=== PATIENT | male | born 1985 | race Caucasian/White ===

== ENCOUNTER 2018-04-13 15:54 | Inpatient (IN) | payer MEDICAID ==
[~2018-04-13] VITALS: Ht 177.8 cm; Wt 64.0 kg
[2018-04-13 16:21] LABS: BASOPHILS % (AUTO) 0.3 % (0.0-2.0); EOSINOPHILS % (AUTO) 0 % (1.0-6.0); HEMATOCRIT 41.1 % (41-53); HEMOGLOBIN 14.2 g/dL (13.5-17.5); LYMPHOCYTES # (AUTO) 1.3 K/uL (1.0-4.8); LYMPHOCYTES % (AUTO) 14.7 % (22.0-44.0); MEAN CORPUSCULAR HEMOGLOBIN 29.4 pg (26.0-34.0); MEAN CORPUSCULAR HGB CONC 34.6 G/dL (31.0-37.0); MEAN CORPUSCULAR VOLUME 85 fL (80-100); MONOCYTES # (AUTO) 0.6 K/uL (0.1-1.0); MONOCYTES % (AUTO) 7.4 % (2.0-9.0); NEUTROPHILS # (AUTO) 6.7 K/uL (1.8-7.7); NEUTROPHILS % (AUTO) 77.6 % (40.0-70.0); PLATELET COUNT (AUTO) 175 K/uL (150-450); RED BLOOD CELL COUNT(AUTO) 4.83 MIL/uL (4.50-5.90); RED CELL DISTRIBUTION WIDTH 14.3 % (11.5-14.5)
[2018-04-13 16:33] LABS: ANION GAP 13 mmol/L (8-16); CALCIUM, TOTAL 8.9 mg/dL (8.8-10.5); CARBON DIOXIDE 23 mmol/L (22-29); CHLORIDE 103 mmol/L (98-107); CREATININE 0.97 mg/dL (0.60-1.30); GLOMERULAR FILTR. RATE CALC > 60 mL/min (>60); GLUCOSE,RANDOM 108 mg/dL (70-110); POTASSIUM 3.5 mmol/L (3.5-5.1); SODIUM SERUM 139 mmol/L (136-145); UREA NITROGEN, BLOOD 11 mg/dL (7-18)
[2018-04-13 16:39] LABS: ALANINE AMINOTRANSFERASE 64 U/L (12-78); ALBUMIN 4.2 g/dL (3.4-5.0); ALKALINE PHOSPHATASE 79 U/L (46-116); ASPARTATE AMINOTRANSFERASE 22 U/L (15-37); BILIRUBIN,TOTAL 0.7 mg/dL (0.1-1.0); TOTAL PROTEIN, SERUM 8.1 g/dL (6.4-8.2)
[2018-04-13] MEDS ORDERED: HALOPERIDOL 5 MG TABLET PO ONE (17:00)
[2018-04-13] MEDS ORDERED: DiphenhydrAMINE HCL 50 MG CAPSULE PO ONE (17:00)
[2018-04-13] MEDS ORDERED: LORazepam 2 MG TABLET PO ONE (17:00)
[2018-04-13 17:04] LABS: AMPHET/METH SCREEN,URINE POSITIVE (NEGATIVE); BARBITURATE SCREEN, URINE NEGATIVE (NEGATIVE); BENZODIAZEPINES SCREEN,URINE NEGATIVE (NEGATIVE); CANNABINOID SCREEN,URINE NEGATIVE (NEGATIVE); COCAINE SCREEN,URINE NEGATIVE (NEGATIVE); METHADONE SCREEN, URINE NEGATIVE (NEGATIVE); OPIATE SCREEN,URINE NEGATIVE (NEGATIVE)
[2018-04-13 17:07] LABS: PHENCYCLIDINE SCREEN,URINE NEGATIVE (NEGATIVE)
[2018-04-13] MEDS ORDERED: HALOPERIDOL 5 MG TABLET PO PRN (17:30)
[2018-04-14 03:58] VITALS: BP 117/78
[2018-04-14 05:43] LABS: APPEARANCE,URINE CLOUDY (CLEAR); BILIRUBIN,URINE NEGATIVE (NEGATIVE); GLUCOSE, URINE (UA) NEGATIVE (NEGATIVE); KETONES,URINE NEGATIVE (NEGATIVE); LEUKOCYTE ESTERASE ,URINE TRACE (NEGATIVE); NITRATE,URINE NEGATIVE (NEGATIVE); OCCULT BLOOD,URINE NEGATIVE (NEGATIVE); PROTEIN,URINE NEGATIVE (NEGATIVE); UROBILINOGEN,URINE 0.2 mg/dL (<=1.0)
[2018-04-14 05:57] LABS: AMORPHOUS SEDIMENT,UR Moderate /LPF (None Seen); BACTERIA,URINE Moderate /HPF (None Seen); RBC,URINE 0-2 /HPF (0-2)
[2018-04-14 07:20] LABS: CHOL/HDL RATIO 2.6 (4.2-7.3); FREE T4 (FREE THYROXINE) 0.95 ng/dL (0.76-1.46); THYROID STIMULATING HORMONE 3.56 uIU/mL (0.36-3.74)
[2018-04-14 09:00] VITALS: BP 121/79
[2018-04-14] MEDS: LORazepam 2 MG TABLET PO PRN (09:45)
[2018-04-14] MEDS: SERTRALINE HCL 50 MG TABLET PO SCH (12:18)
[2018-04-14] MEDS: HALOPERIDOL 5 MG TABLET PO SCH ×2 (12:18→20:22)
[2018-04-14] MEDS ORDERED: PETROLATUM,WHITE 71 GM JELLY TP PRN (13:15)
[2018-04-14] MEDS ORDERED: LOPERAMIDE HCL 2 MG CAPSULE PO PRN (13:15)
[2018-04-14] MEDS ORDERED: MAG HYDROX/AL HYDROX/SIMETH ES 30 ML SUSPENSION UDCUP PO PRN (13:15)
[2018-04-14] MEDS ORDERED: CloNIDine HCL 0.1 MG TABLET PO PRN (13:15)
[2018-04-14] MEDS ORDERED: ALBUTEROL SULFATE HFA 90 MCG/PUFF 8 GM INHALER IH PRN (13:15)
[2018-04-14] MEDS ORDERED: ACETAMINOPHEN 325 MG TABLET PO PRN (13:15)
[2018-04-14] MEDS ORDERED: IBUPROFEN 600 MG TABLET PO PRN (13:15)
[2018-04-14] MEDS ORDERED: BACITRACIN 28.4 GM OINTMENT TP PRN (13:15)
[2018-04-14] MEDS ORDERED: BENZOCAINE/MENTHOL LOZENGE MM PRN (13:15)
[2018-04-14] MEDS ORDERED: ONDANSETRON HCL 4 MG TABLET PO PRN (13:15)
[2018-04-14] MEDS ORDERED: MAGNESIUM HYDROXIDE SUSPENSION 30 ML UDCUP PO PRN (13:15)
[2018-04-14 17:00] VITALS: BP 120/66
[2018-04-14] MEDS: CIPROFLOXACIN HCL 250 MG TABLET PO SCH (17:30)
[2018-04-15 05:49] VITALS: BP 116/73
[2018-04-15] MEDS: HALOPERIDOL 5 MG TABLET PO SCH ×2 (09:00→20:24)
[2018-04-15] MEDS: CIPROFLOXACIN HCL 250 MG TABLET PO SCH ×2 (09:00→17:48)
[2018-04-15] MEDS: SERTRALINE HCL 50 MG TABLET PO SCH (09:00)
[2018-04-15 09:58] VITALS: BP 100/58
[2018-04-15 21:31] VITALS: BP 112/65
[2018-04-16 05:03] VITALS: BP 118/61
[2018-04-16 09:19] VITALS: BP 131/74
[2018-04-16] MEDS: SERTRALINE HCL 50 MG TABLET PO SCH (10:17)
[2018-04-16] MEDS: CIPROFLOXACIN HCL 250 MG TABLET PO SCH ×2 (10:17→16:56)
[2018-04-16] MEDS: HALOPERIDOL 5 MG TABLET PO SCH ×2 (10:18→21:09)
[2018-04-16 20:29] VITALS: BP 126/75
[2018-04-17 01:30] VITALS: BP 125/81
[2018-04-17] MEDS ORDERED: DiphenhydrAMINE HCL 50 MG/ML VIAL IM ONE (07:15)
[2018-04-17] MEDS: HALOPERIDOL 5 MG TABLET PO SCH ×3 (09:00→19:57)
[2018-04-17 09:55] VITALS: BP 119/75
[2018-04-17] MEDS: SERTRALINE HCL 50 MG TABLET PO SCH (10:52)
[2018-04-17] MEDS: CIPROFLOXACIN HCL 250 MG TABLET PO SCH (10:53)
[2018-04-17] MEDS: BENZTROPINE MESYLATE 1 MG TABLET PO SCH ×2 (10:53→19:57)
[2018-04-17 17:00] VITALS: BP 122/72
[2018-04-18] MEDS: SERTRALINE HCL 50 MG TABLET PO SCH (08:21)
[2018-04-18] MEDS: LORazepam 2 MG TABLET PO PRN (08:22)
[2018-04-18] MEDS: BENZTROPINE MESYLATE 1 MG TABLET PO SCH ×2 (08:22→20:21)
[2018-04-18] MEDS: HALOPERIDOL 5 MG TABLET PO SCH ×2 (08:22→20:22)
[2018-04-18 09:51] VITALS: BP 102/66
[2018-04-18 19:47] VITALS: BP 119/71
[2018-04-19 04:44] VITALS: BP 118/69
[2018-04-19 08:00] VITALS: BP 102/64
[2018-04-19] MEDS: BENZTROPINE MESYLATE 1 MG TABLET PO SCH ×2 (08:47→21:38)
[2018-04-19] MEDS: SERTRALINE HCL 50 MG TABLET PO SCH (08:47)
[2018-04-19] MEDS: HALOPERIDOL 5 MG TABLET PO SCH ×2 (09:00→21:00)
[2018-04-19] MEDS: LORazepam 2 MG TABLET PO PRN (09:39)
[2018-04-19 19:14] VITALS: BP 120/68
[2018-04-20] MEDS: ZOLPIDEM TARTRATE 10 MG TABLET PO PRN (00:33)
[2018-04-20 03:18] VITALS: BP 118/63
[2018-04-20] MEDS: LORazepam 2 MG TABLET PO PRN ×2 (04:43→13:43)
[2018-04-20] MEDS: SERTRALINE HCL 50 MG TABLET PO SCH (08:38)
[2018-04-20] MEDS: HALOPERIDOL 5 MG TABLET PO SCH ×2 (08:38→20:21)
[2018-04-20] MEDS: BENZTROPINE MESYLATE 1 MG TABLET PO SCH ×2 (08:38→20:21)
[2018-04-20 10:56] VITALS: BP 128/88
[2018-04-20 18:00] VITALS: BP 100/77
[2018-04-21] VITALS: BP 113/79
[2018-04-21] MEDS: ZOLPIDEM TARTRATE 10 MG TABLET PO PRN (00:45)
[2018-04-21] MEDS: LORazepam 2 MG TABLET PO PRN ×2 (03:52→08:31)
[2018-04-21] MEDS ORDERED: BENZ1TAB10 PO (07:29)
[2018-04-21] MEDS ORDERED: HALO5TAB2 PO (07:30)
[2018-04-21] MEDS ORDERED: SERT50TA12 PO (07:31)
[2018-04-21] MEDS: HALOPERIDOL 5 MG TABLET PO SCH (08:31)
[2018-04-21] MEDS: SERTRALINE HCL 50 MG TABLET PO SCH (08:31)
[2018-04-21] MEDS: BENZTROPINE MESYLATE 1 MG TABLET PO SCH (08:31)
[2018-04-21 09:05] VITALS: BP 114/67
== END 2018-04-21 10:15 | disposition home or self-care (01) | DRG 750 ==
LOC: EMS 15:55 → 3EI 23:31
DX: F25.1 Schizoaffective disorder, depressive type (principal); Z59.0 Homelessness; N39.0 Urinary tract infection, site not specified; G47.00 Insomnia, unspecified; F17.200 Nicotine dependence, unspecified, uncomplicated; F15.10 Other stimulant abuse, uncomplicated; Z79.899 Other long term (current) drug therapy; Z88.5 Allergy status to narcotic agent; Z88.8 Allergy status to other drugs, medicaments and biological substances; Z91.040 Latex allergy status
CPT/HCPCS: 84439; 84443; 87086; 93005; G0480; J1200

== ENCOUNTER 2018-05-10 10:03 | Inpatient (IN) | payer MEDICAID ==
[~2018-05-10] VITALS: Ht 177.8 cm; Wt 67.7 kg
[~2018-05-10 10:03] MED LIST: BENZ1TAB10 PO; HALO5TAB2 PO; LEVO25TA9 PO; QUET100T33 PO; SERT50TA12 PO
[2018-05-10] MEDS ORDERED: LORazepam 1 MG TABLET PO ONE (10:45)
[2018-05-10] MEDS ORDERED: RisperiDONE 1 MG TABLET PO ONE (11:15)
[2018-05-10 12:45] LABS: BASOPHILS % (AUTO) 0.4 % (0.0-2.0); EOSINOPHILS % (AUTO) 1.9 % (1.0-6.0); HEMATOCRIT 39.5 % (41-53); HEMOGLOBIN 13.7 g/dL (13.5-17.5); LYMPHOCYTES # (AUTO) 1.5 K/uL (1.0-4.8); LYMPHOCYTES % (AUTO) 31.1 % (22.0-44.0); MEAN CORPUSCULAR HEMOGLOBIN 29.9 pg (26.0-34.0); MEAN CORPUSCULAR HGB CONC 34.7 G/dL (31.0-37.0); MEAN CORPUSCULAR VOLUME 86 fL (80-100); MONOCYTES # (AUTO) 0.8 K/uL (0.1-1.0); MONOCYTES % (AUTO) 15.7 % (2.0-9.0); NEUTROPHILS # (AUTO) 2.5 K/uL (1.8-7.7); NEUTROPHILS % (AUTO) 50.9 % (40.0-70.0); PLATELET COUNT (AUTO) 127 K/uL (150-450); RED BLOOD CELL COUNT(AUTO) 4.58 MIL/uL (4.50-5.90); RED CELL DISTRIBUTION WIDTH 14.4 % (11.5-14.5)
[2018-05-10] MEDS ORDERED: HALOPERIDOL 5 MG TABLET PO PRN (12:45)
[2018-05-10 12:58] LABS: ANION GAP 8 mmol/L (8-16); CALCIUM, TOTAL 8.3 mg/dL (8.8-10.5); CARBON DIOXIDE 27 mmol/L (22-29); CHLORIDE 104 mmol/L (98-107); GLOMERULAR FILTR. RATE CALC > 60 mL/min (>60); GLUCOSE,RANDOM 91 mg/dL (70-110); POTASSIUM 3.6 mmol/L (3.5-5.1); SODIUM SERUM 139 mmol/L (136-145); UREA NITROGEN, BLOOD 14 mg/dL (7-18)
[2018-05-10 12:58] LABS: AMPHET/METH SCREEN,URINE NEGATIVE (NEGATIVE); BARBITURATE SCREEN, URINE NEGATIVE (NEGATIVE); BENZODIAZEPINES SCREEN,URINE NEGATIVE (NEGATIVE); CANNABINOID SCREEN,URINE NEGATIVE (NEGATIVE); COCAINE SCREEN,URINE NEGATIVE (NEGATIVE); METHADONE SCREEN, URINE NEGATIVE (NEGATIVE); OPIATE SCREEN,URINE NEGATIVE (NEGATIVE); PHENCYCLIDINE SCREEN,URINE NEGATIVE (NEGATIVE)
[2018-05-10 13:06] LABS: ALANINE AMINOTRANSFERASE 43 U/L (12-78); ALBUMIN 3.6 g/dL (3.4-5.0); ALKALINE PHOSPHATASE 77 U/L (46-116); ASPARTATE AMINOTRANSFERASE 19 U/L (15-37); BILIRUBIN,TOTAL 0.6 mg/dL (0.1-1.0); TOTAL PROTEIN, SERUM 7.2 g/dL (6.4-8.2)
[2018-05-10 14:27] LABS: APPEARANCE,URINE CLOUDY (CLEAR); BILIRUBIN,URINE NEGATIVE (NEGATIVE); GLUCOSE, URINE (UA) NEGATIVE (NEGATIVE); KETONES,URINE NEGATIVE (NEGATIVE); LEUKOCYTE ESTERASE ,URINE MODERATE (NEGATIVE); NITRATE,URINE NEGATIVE (NEGATIVE); OCCULT BLOOD,URINE NEGATIVE (NEGATIVE); PROTEIN,URINE NEGATIVE (NEGATIVE); UROBILINOGEN,URINE 0.2 mg/dL (<=1.0)
[2018-05-10 14:42] LABS: RBC,URINE None Seen /HPF (0-2)
[2018-05-10 14:43] LABS: BACTERIA,URINE Few /HPF (None Seen); SQUAMOUS EPITHELIAL CELL,UR Few /LPF (None Seen)
[2018-05-10 14:47] LABS: WBC,URINE 26-50 /HPF (0-5)
[2018-05-10 15:04] VITALS: BP 106/60
[2018-05-10] MEDS ORDERED: CloNIDine HCL 0.1 MG TABLET PO PRN (15:15)
[2018-05-10] MEDS ORDERED: ACETAMINOPHEN 325 MG TABLET PO PRN (15:15)
[2018-05-10] MEDS ORDERED: ALBUTEROL SULFATE HFA 90 MCG/PUFF 8 GM INHALER IH PRN (15:15)
[2018-05-10] MEDS ORDERED: MAGNESIUM HYDROXIDE SUSPENSION 30 ML UDCUP PO PRN (15:15)
[2018-05-10] MEDS ORDERED: PETROLATUM,WHITE 71 GM JELLY TP PRN (15:15)
[2018-05-10] MEDS ORDERED: LOPERAMIDE HCL 2 MG CAPSULE PO PRN (15:15)
[2018-05-10] MEDS ORDERED: ONDANSETRON HCL 4 MG TABLET PO PRN (15:15)
[2018-05-10] MEDS ORDERED: IBUPROFEN 400 MG TABLET PO PRN (15:15)
[2018-05-10] MEDS ORDERED: MAG HYDROX/AL HYDROX/SIMETH ES 30 ML SUSPENSION UDCUP PO PRN (15:15)
[2018-05-10] MEDS ORDERED: DOCUSATE SODIUM 100 MG CAPSULE PO PRN (15:15)
[2018-05-11 06:02] LABS: BASOPHILS % (AUTO) 0.4 % (0.0-2.0); EOSINOPHILS % (AUTO) 2.1 % (1.0-6.0); HEMATOCRIT 41.5 % (41-53); HEMOGLOBIN 14.5 g/dL (13.5-17.5); LYMPHOCYTES # (AUTO) 1.9 K/uL (1.0-4.8); LYMPHOCYTES % (AUTO) 35.1 % (22.0-44.0); MEAN CORPUSCULAR HEMOGLOBIN 30.2 pg (26.0-34.0); MEAN CORPUSCULAR VOLUME 86 fL (80-100); MONOCYTES # (AUTO) 0.7 K/uL (0.1-1.0); MONOCYTES % (AUTO) 12.7 % (2.0-9.0); NEUTROPHILS # (AUTO) 2.7 K/uL (1.8-7.7); NEUTROPHILS % (AUTO) 49.7 % (40.0-70.0); PLATELET COUNT (AUTO) 142 K/uL (150-450); RED BLOOD CELL COUNT(AUTO) 4.81 MIL/uL (4.50-5.90); RED CELL DISTRIBUTION WIDTH 14.2 % (11.5-14.5)
[2018-05-11 07:13] LABS: ALANINE AMINOTRANSFERASE 38 U/L (12-78); ALBUMIN 3.7 g/dL (3.4-5.0); ALKALINE PHOSPHATASE 70 U/L (46-116); ANION GAP 5 mmol/L (8-16); ASPARTATE AMINOTRANSFERASE 14 U/L (15-37); BILIRUBIN,TOTAL 0.6 mg/dL (0.1-1.0); CALCIUM, TOTAL 8.8 mg/dL (8.8-10.5); CARBON DIOXIDE 30 mmol/L (22-29); CHLORIDE 104 mmol/L (98-107); CHOL/HDL RATIO 4.2 (4.2-7.3); CHOLESTEROL 184 mg/dL (131-200); FREE T4 (FREE THYROXINE) 0.75 ng/dL (0.76-1.46); GLOMERULAR FILTR. RATE CALC > 60 mL/min (>60); GLUCOSE,RANDOM 79 mg/dL (70-110); HDL CHOLESTEROL 44 mg/dL (40-60); LDL CHOL (CALC.) 120 mg/dL (0-130); POTASSIUM 3.9 mmol/L (3.5-5.1); SODIUM SERUM 139 mmol/L (136-145); THYROID STIMULATING HORMONE 1.25 uIU/mL (0.36-3.74); TOTAL PROTEIN, SERUM 7.6 g/dL (6.4-8.2); TRIGLYCERIDES 100 mg/dL (15-150); UREA NITROGEN, BLOOD 13 mg/dL (7-18)
[2018-05-11] MEDS: NICOTINE 14 MG/24 HOUR PATCH TD SCH (09:00)
[2018-05-11 09:28] VITALS: BP 122/57
[2018-05-11] MEDS: CIPROFLOXACIN HCL 250 MG TABLET PO SCH ×2 (10:04→20:55)
[2018-05-11] MEDS: SERTRALINE HCL 50 MG TABLET PO SCH (11:07)
[2018-05-11] MEDS: HALOPERIDOL 5 MG TABLET PO SCH ×2 (11:07→20:55)
[2018-05-11] MEDS: BENZTROPINE MESYLATE 1 MG TABLET PO SCH ×2 (11:07→20:55)
[2018-05-11] MEDS: LORazepam 2 MG TABLET PO PRN (11:14)
[2018-05-11 20:04] VITALS: BP 114/69
[2018-05-12] MEDS: CIPROFLOXACIN HCL 250 MG TABLET PO SCH ×2 (07:41→21:29)
[2018-05-12] MEDS: BENZTROPINE MESYLATE 1 MG TABLET PO SCH ×2 (07:41→21:29)
[2018-05-12] MEDS: NICOTINE 14 MG/24 HOUR PATCH TD SCH (07:41)
[2018-05-12] MEDS: SERTRALINE HCL 50 MG TABLET PO SCH (07:41)
[2018-05-12] MEDS: HALOPERIDOL 5 MG TABLET PO SCH ×2 (07:41→21:30)
[2018-05-12] MEDS: LORazepam 2 MG TABLET PO PRN ×2 (07:42→12:15)
[2018-05-12 11:26] VITALS: BP 121/77
[2018-05-12 20:12] VITALS: BP 105/64
[2018-05-13] MEDS: ZOLPIDEM TARTRATE 10 MG TABLET PO PRN (00:41)
[2018-05-13 02:00] VITALS: BP 113/62
[2018-05-13] MEDS: LORazepam 2 MG TABLET PO PRN (02:30)
[2018-05-13 05:26] LABS: APPEARANCE,URINE CLEAR (CLEAR); BILIRUBIN,URINE NEGATIVE (NEGATIVE); GLUCOSE, URINE (UA) NEGATIVE (NEGATIVE); KETONES,URINE NEGATIVE (NEGATIVE); LEUKOCYTE ESTERASE ,URINE NEGATIVE (NEGATIVE); NITRATE,URINE NEGATIVE (NEGATIVE); OCCULT BLOOD,URINE NEGATIVE (NEGATIVE); PH,URINE 6.5 (5.0-8.0); PROTEIN,URINE NEGATIVE (NEGATIVE); UROBILINOGEN,URINE 0.2 mg/dL (<=1.0)
[2018-05-13 05:32] LABS: AMPHET/METH SCREEN,URINE NEGATIVE (NEGATIVE); BARBITURATE SCREEN, URINE NEGATIVE (NEGATIVE); BENZODIAZEPINES SCREEN,URINE NEGATIVE (NEGATIVE); CANNABINOID SCREEN,URINE NEGATIVE (NEGATIVE); COCAINE SCREEN,URINE NEGATIVE (NEGATIVE); METHADONE SCREEN, URINE NEGATIVE (NEGATIVE); OPIATE SCREEN,URINE NEGATIVE (NEGATIVE)
[2018-05-13 05:43] LABS: PHENCYCLIDINE SCREEN,URINE NEGATIVE (NEGATIVE)
[2018-05-13 08:30] VITALS: BP 123/94
[2018-05-13] MEDS: NICOTINE 14 MG/24 HOUR PATCH TD SCH (09:00)
[2018-05-13] MEDS: CIPROFLOXACIN HCL 250 MG TABLET PO SCH ×2 (10:44→16:42)
[2018-05-13] MEDS: SERTRALINE HCL 50 MG TABLET PO SCH (10:44)
[2018-05-13] MEDS: BENZTROPINE MESYLATE 1 MG TABLET PO SCH (10:44)
[2018-05-13] MEDS: HALOPERIDOL 5 MG TABLET PO SCH (10:46)
[2018-05-13 16:40] VITALS: BP 110/66
[2018-05-13] MEDS: QUEtiapine FUMARATE 100 MG TABLET PO SCH (20:47)
[2018-05-14 04:26] VITALS: BP 129/87
[2018-05-14] MEDS: LORazepam 2 MG TABLET PO PRN ×2 (04:34→09:39)
[2018-05-14] MEDS: NICOTINE 14 MG/24 HOUR PATCH TD SCH (09:00)
[2018-05-14] MEDS: QUEtiapine FUMARATE 100 MG TABLET PO SCH ×2 (09:38→20:06)
[2018-05-14] MEDS: CIPROFLOXACIN HCL 250 MG TABLET PO SCH ×2 (09:38→16:48)
[2018-05-14] MEDS: SERTRALINE HCL 50 MG TABLET PO SCH (09:38)
[2018-05-14 21:50] VITALS: BP 120/94
[2018-05-15] MEDS ORDERED: QUET100T33 PO (04:38)
[2018-05-15] MEDS ORDERED: SERT50TA12 PO ×2 (04:38→13:14)
[2018-05-15 08:05] VITALS: BP 129/79
[2018-05-15] MEDS: NICOTINE 14 MG/24 HOUR PATCH TD SCH (09:00)
[2018-05-15] MEDS: SERTRALINE HCL 50 MG TABLET PO SCH (09:06)
[2018-05-15] MEDS: QUEtiapine FUMARATE 100 MG TABLET PO SCH ×2 (09:06→20:44)
[2018-05-15] MEDS: CIPROFLOXACIN HCL 250 MG TABLET PO SCH ×2 (09:06→16:40)
[2018-05-15] MEDS ORDERED: QUET100T PO (13:13)
[2018-05-15] MEDS ORDERED: CIP250 PO (13:13)
[2018-05-15 18:16] VITALS: BP 121/80
[2018-05-16 05:20] VITALS: BP 117/88
[2018-05-16 08:00] VITALS: BP 124/62
[2018-05-16] MEDS: NICOTINE 14 MG/24 HOUR PATCH TD SCH (09:00)
[2018-05-16] MEDS: QUEtiapine FUMARATE 100 MG TABLET PO SCH ×2 (09:36→20:30)
[2018-05-16] MEDS: SERTRALINE HCL 100 MG TABLET PO SCH (09:36)
[2018-05-16] MEDS: CIPROFLOXACIN HCL 250 MG TABLET PO SCH ×2 (09:36→17:18)
[2018-05-16] MEDS: LORazepam 2 MG TABLET PO PRN (09:38)
[2018-05-16 17:18] VITALS: BP 121/81
[2018-05-17 04:07] VITALS: BP 126/76
[2018-05-17] MEDS: QUEtiapine FUMARATE 100 MG TABLET PO PRN (04:07)
[2018-05-17] MEDS: SERTRALINE HCL 100 MG TABLET PO SCH (08:46)
[2018-05-17] MEDS: CIPROFLOXACIN HCL 250 MG TABLET PO SCH ×2 (08:46→16:07)
[2018-05-17] MEDS: QUEtiapine FUMARATE 100 MG TABLET PO SCH (08:47)
[2018-05-17] MEDS: NICOTINE 14 MG/24 HOUR PATCH TD SCH (08:49)
[2018-05-17 10:57] VITALS: BP 126/81
[2018-05-17 17:30] VITALS: BP 110/69
[2018-05-17] MEDS: QUEtiapine FUMARATE 200 MG TABLET PO SCH (20:23)
[2018-05-18 05:58] VITALS: BP 121/72
[2018-05-18] MEDS: QUEtiapine FUMARATE 100 MG TABLET PO PRN (06:58)
[2018-05-18] MEDS: LORazepam 2 MG TABLET PO PRN (06:58)
[2018-05-18] MEDS: QUEtiapine FUMARATE 200 MG TABLET PO SCH ×2 (08:47→20:22)
[2018-05-18] MEDS: SERTRALINE HCL 100 MG TABLET PO SCH (08:48)
[2018-05-18] MEDS: NICOTINE 14 MG/24 HOUR PATCH TD SCH (08:49)
[2018-05-18 10:24] VITALS: BP 134/78
[2018-05-18 18:00] VITALS: BP 128/78
[2018-05-19] MEDS: ZOLPIDEM TARTRATE 10 MG TABLET PO PRN (00:38)
[2018-05-19 07:09] VITALS: BP 123/76
[2018-05-19] MEDS: SERTRALINE HCL 100 MG TABLET PO SCH (07:47)
[2018-05-19] MEDS: QUEtiapine FUMARATE 200 MG TABLET PO SCH ×2 (07:47→20:24)
[2018-05-19] MEDS: NICOTINE 14 MG/24 HOUR PATCH TD SCH (09:00)
[2018-05-19 10:01] VITALS: BP 127/76
[2018-05-19] MEDS ORDERED: BENZOCAINE 10% 7 GM GEL TP PRN (13:45)
[2018-05-19] MEDS: LORazepam 2 MG TABLET PO PRN (16:25)
[2018-05-19] MEDS: QUEtiapine FUMARATE 100 MG TABLET PO PRN (17:09)
[2018-05-19 17:14] VITALS: BP 131/72
[2018-05-20 06:32] VITALS: BP 120/83
[2018-05-20] MEDS: SERTRALINE HCL 100 MG TABLET PO SCH (08:00)
[2018-05-20] MEDS: QUEtiapine FUMARATE 200 MG TABLET PO SCH ×2 (08:00→20:16)
[2018-05-20] MEDS: NICOTINE 14 MG/24 HOUR PATCH TD SCH (08:00)
[2018-05-20 10:26] VITALS: BP 125/72
[2018-05-20 18:27] VITALS: BP 126/69
[2018-05-20] MEDS: ZOLPIDEM TARTRATE 10 MG TABLET PO PRN (20:17)
[2018-05-20] MEDS: LORazepam 2 MG TABLET PO PRN (20:17)
[2018-05-21 08:00] VITALS: BP 125/69
[2018-05-21] MEDS: QUEtiapine FUMARATE 200 MG TABLET PO SCH ×2 (10:02→21:05)
[2018-05-21] MEDS: SERTRALINE HCL 100 MG TABLET PO SCH (10:02)
[2018-05-21 16:09] VITALS: BP 121/76
[2018-05-22 08:15] VITALS: BP 120/62
[2018-05-22] MEDS: QUEtiapine FUMARATE 200 MG TABLET PO SCH ×2 (09:18→20:18)
[2018-05-22] MEDS: SERTRALINE HCL 100 MG TABLET PO SCH (09:18)
[2018-05-22 16:59] VITALS: BP 125/69
[2018-05-23 08:00] VITALS: BP 119/88
[2018-05-23] MEDS: QUEtiapine FUMARATE 200 MG TABLET PO SCH ×2 (09:38→20:22)
[2018-05-23] MEDS: SERTRALINE HCL 100 MG TABLET PO SCH (09:38)
[2018-05-23 16:00] VITALS: BP 142/94
[2018-05-23] MEDS: QUEtiapine FUMARATE 100 MG TABLET PO PRN (16:14)
[2018-05-24 08:00] VITALS: BP 118/78
[2018-05-24] MEDS: QUEtiapine FUMARATE 200 MG TABLET PO SCH ×2 (08:07→20:12)
[2018-05-24] MEDS: SERTRALINE HCL 100 MG TABLET PO SCH (08:07)
[2018-05-24] MEDS: QUEtiapine FUMARATE 100 MG TABLET PO PRN (08:51)
[2018-05-24] MEDS: LORazepam 2 MG TABLET PO PRN (15:10)
[2018-05-24 16:59] VITALS: BP 114/70
[2018-05-25 08:00] VITALS: BP 130/71
[2018-05-25] MEDS: SERTRALINE HCL 100 MG TABLET PO SCH (09:48)
[2018-05-25] MEDS: QUEtiapine FUMARATE 200 MG TABLET PO SCH ×2 (09:48→21:03)
[2018-05-25 16:56] VITALS: BP 124/86
[2018-05-25] MEDS: LORazepam 2 MG TABLET PO PRN (17:56)
[2018-05-26 08:00] VITALS: BP 127/57
[2018-05-26] MEDS: SERTRALINE HCL 100 MG TABLET PO SCH (08:28)
[2018-05-26] MEDS: QUEtiapine FUMARATE 200 MG TABLET PO SCH (08:28)
[2018-05-26] MEDS ORDERED: SERT100T12 PO (10:16)
[2018-05-26] MEDS ORDERED: QUET200T29 PO (10:16)
== END 2018-05-26 11:08 | disposition home or self-care (01) | DRG 750 ==
LOC: EMS 10:04 → AHU 13:08 → 3EI 05-13 01:05
DX: F25.1 Schizoaffective disorder, depressive type (principal); R45.851 Suicidal ideations; F15.10 Other stimulant abuse, uncomplicated; F41.9 Anxiety disorder, unspecified; N39.0 Urinary tract infection, site not specified; K08.89 Other specified disorders of teeth and supporting structures; G47.00 Insomnia, unspecified; Z88.5 Allergy status to narcotic agent; Z88.8 Allergy status to other drugs, medicaments and biological substances; Z91.040 Latex allergy status; Z79.899 Other long term (current) drug therapy; Z63.8 Other specified problems related to primary support group
CPT/HCPCS: 80307; 83036; 84439; 84443; 87081; 87086; 99285; G0480; Q0162

== ENCOUNTER 2018-06-13 09:21 | Inpatient (IN) | payer SELFPAY ==
[~2018-06-13] VITALS: Ht 177.8 cm; Wt 69.7 kg
[~2018-06-13 09:21] MED LIST changes: -HALO5TAB2 PO; +QUET200T29 PO; +SERT100T12 PO
[2018-06-13] MEDS ORDERED: BENZ1TAB10 PO (09:35)
[2018-06-13] MEDS ORDERED: LEVO25TA9 PO (09:35)
[2018-06-13] MEDS ORDERED: SERT100T12 PO (09:35)
[2018-06-13] MEDS ORDERED: QUET200T PO (09:35)
[2018-06-13] MEDS ORDERED: QUET25TA PO (09:35)
[2018-06-13 09:44] LABS: BASOPHILS % (AUTO) 0.5 % (0.0-2.0); EOSINOPHILS % (AUTO) 1.6 % (1.0-6.0); HEMATOCRIT 43.8 % (41-53); HEMOGLOBIN 15.1 g/dL (13.5-17.5); LYMPHOCYTES # (AUTO) 1.7 K/uL (1.0-4.8); MEAN CORPUSCULAR HEMOGLOBIN 29.7 pg (26.0-34.0); MEAN CORPUSCULAR HGB CONC 34.4 G/dL (31.0-37.0); MEAN CORPUSCULAR VOLUME 86 fL (80-100); MONOCYTES # (AUTO) 0.9 K/uL (0.1-1.0); MONOCYTES % (AUTO) 12.7 % (2.0-9.0); NEUTROPHILS % (AUTO) 60.2 % (40.0-70.0); PLATELET COUNT (AUTO) 135 K/uL (150-450); RED BLOOD CELL COUNT(AUTO) 5.08 MIL/uL (4.50-5.90); RED CELL DISTRIBUTION WIDTH 14.3 % (11.5-14.5)
[2018-06-13 09:57] LABS: ANION GAP 6 mmol/L (8-16); CALCIUM, TOTAL 9.1 mg/dL (8.8-10.5); CARBON DIOXIDE 30 mmol/L (22-29); CHLORIDE 105 mmol/L (98-107); CREATININE 0.99 mg/dL (0.60-1.30); GLOMERULAR FILTR. RATE CALC > 60 mL/min (>60); GLUCOSE,RANDOM 90 mg/dL (70-110); POTASSIUM 3.7 mmol/L (3.5-5.1); SODIUM SERUM 141 mmol/L (136-145); UREA NITROGEN, BLOOD 12 mg/dL (7-18)
[2018-06-13] MEDS ORDERED: HALOPERIDOL 5 MG TABLET PO PRN ×2 (10:00)
[2018-06-13] MEDS ORDERED: ZOLPIDEM TARTRATE 10 MG TABLET PO PRN ×2 (10:00)
[2018-06-13] MEDS ORDERED: LORazepam 2 MG TABLET PO PRN (10:00)
[2018-06-13 10:02] LABS: ALANINE AMINOTRANSFERASE 180 U/L (12-78); ALBUMIN 3.9 g/dL (3.4-5.0); ALKALINE PHOSPHATASE 89 U/L (46-116); ASPARTATE AMINOTRANSFERASE 61 U/L (15-37); BILIRUBIN,TOTAL 0.8 mg/dL (0.1-1.0)
[2018-06-13 12:56] VITALS: BP 124/87
[2018-06-13] MEDS ORDERED: LOPERAMIDE HCL 2 MG CAPSULE PO PRN (13:45)
[2018-06-13] MEDS ORDERED: CloNIDine HCL 0.1 MG TABLET PO PRN (13:45)
[2018-06-13] MEDS ORDERED: MAG HYDROX/AL HYDROX/SIMETH ES 30 ML SUSPENSION UDCUP PO PRN (13:45)
[2018-06-13] MEDS ORDERED: MAGNESIUM HYDROXIDE SUSPENSION 30 ML UDCUP PO PRN (13:45)
[2018-06-13] MEDS ORDERED: DOCUSATE SODIUM 100 MG CAPSULE PO PRN (13:45)
[2018-06-13] MEDS ORDERED: ONDANSETRON HCL 4 MG TABLET PO PRN (13:45)
[2018-06-13] MEDS ORDERED: GuaiFENesin/D-METHORPHAN [SUGAR-FREE] 200-20MG/10 ML SYRUP UDCUP PO PRN (13:45)
[2018-06-13] MEDS ORDERED: NICOTINE 14 MG/24 HOUR PATCH TD PRN (13:45)
[2018-06-13] MEDS ORDERED: ACETAMINOPHEN 325 MG TABLET PO PRN (13:45)
[2018-06-13] MEDS ORDERED: ALBUTEROL SULFATE HFA 90 MCG/PUFF 8 GM INHALER IH PRN (13:45)
[2018-06-13] MEDS ORDERED: IBUPROFEN 400 MG TABLET PO PRN (13:45)
[2018-06-13] MEDS ORDERED: PETROLATUM,WHITE 71 GM JELLY TP PRN (13:45)
[2018-06-13 16:18] VITALS: BP 123/74
[2018-06-13] MEDS: LORazepam 2 MG TABLET PO PRN (16:39)
[2018-06-13] MEDS: QUEtiapine FUMARATE 200 MG TABLET PO SCH (20:03)
[2018-06-13 20:24] VITALS: BP 127/74
[2018-06-14 05:07] LABS: HEMOGLOBIN A1C 4.9 % (4.5-6.2)
[2018-06-14 05:25] LABS: CHOL/HDL RATIO 4.2 (4.2-7.3); THYROID STIMULATING HORMONE 0.54 uIU/mL (0.36-3.74)
[2018-06-14 08:16] VITALS: BP 118/70
[2018-06-14] MEDS: SERTRALINE HCL 100 MG TABLET PO SCH (08:23)
[2018-06-14] MEDS: QUEtiapine FUMARATE 200 MG TABLET PO SCH (08:23)
[2018-06-14] MEDS: LORazepam 2 MG TABLET PO PRN ×2 (08:33→20:33)
[2018-06-14 16:17] VITALS: BP 117/76
[2018-06-14 18:35] VITALS: BP 135/74
[2018-06-15 07:04] LABS: AMPHET/METH SCREEN,URINE NEGATIVE (NEGATIVE); BARBITURATE SCREEN, URINE NEGATIVE (NEGATIVE); BENZODIAZEPINES SCREEN,URINE NEGATIVE (NEGATIVE); CANNABINOID SCREEN,URINE NEGATIVE (NEGATIVE); COCAINE SCREEN,URINE NEGATIVE (NEGATIVE); METHADONE SCREEN, URINE NEGATIVE (NEGATIVE); OPIATE SCREEN,URINE NEGATIVE (NEGATIVE); PHENCYCLIDINE SCREEN,URINE NEGATIVE (NEGATIVE)
[2018-06-15] MEDS: SERTRALINE HCL 100 MG TABLET PO SCH (08:53)
[2018-06-15] MEDS: QUEtiapine FUMARATE 200 MG TABLET PO SCH ×2 (08:53→16:36)
[2018-06-15 10:43] VITALS: BP 127/71
[2018-06-15 16:15] VITALS: BP 129/71
[2018-06-15] MEDS: LORazepam 2 MG TABLET PO PRN (16:36)
[2018-06-16 06:41] VITALS: BP 110/73
[2018-06-16] MEDS: QUEtiapine FUMARATE 200 MG TABLET PO SCH (09:01)
[2018-06-16] MEDS: SERTRALINE HCL 100 MG TABLET PO SCH (09:01)
[2018-06-16] MEDS: LORazepam 2 MG TABLET PO PRN (09:02)
[2018-06-16 09:19] VITALS: BP 129/73
[2018-06-16] MEDS ORDERED: QUET200T29 PO (10:32)
[2018-06-16] MEDS ORDERED: SERT100T12 PO (10:32)
== END 2018-06-16 14:15 | disposition home or self-care (01) | DRG 885 ==
LOC: EMS 09:22 → AHU 12:05 → 3EI 06-14 17:43
DX: F25.1 Schizoaffective disorder, depressive type (principal); R45.851 Suicidal ideations; F15.20 Other stimulant dependence, uncomplicated; Z71.51 Drug abuse counseling and surveillance of drug abuser; F41.9 Anxiety disorder, unspecified; E03.9 Hypothyroidism, unspecified; G47.00 Insomnia, unspecified; Z88.5 Allergy status to narcotic agent; Z59.0 Homelessness; Z79.899 Other long term (current) drug therapy
CPT/HCPCS: 71101; 83036; 84443; 87081; 99285; G0480

== ENCOUNTER 2018-08-13 12:45 | Emergency (ER) | payer MEDICAID ==
[~2018-08-13] VITALS: Ht 170.2 cm; Wt 72.0 kg
[~2018-08-13 12:45] MED LIST changes: -BENZ1TAB10 PO; -LEVO25TA9 PO; -QUET100T33 PO; -SERT50TA12 PO
[2018-08-13 13:21] LABS: BASOPHILS % (AUTO) 0.2 % (0.0-2.0); EOSINOPHILS % (AUTO) 0.4 % (1.0-6.0); HEMATOCRIT 41.2 % (41-53); HEMOGLOBIN 14.2 g/dL (13.5-17.5); LYMPHOCYTES # (AUTO) 0.9 K/uL (1.0-4.8); MEAN CORPUSCULAR HEMOGLOBIN 29.3 pg (26.0-34.0); MEAN CORPUSCULAR HGB CONC 34.3 G/dL (31.0-37.0); MEAN CORPUSCULAR VOLUME 86 fL (80-100); MONOCYTES # (AUTO) 0.6 K/uL (0.1-1.0); MONOCYTES % (AUTO) 6.7 % (2.0-9.0); NEUTROPHILS # (AUTO) 7.7 K/uL (1.8-7.7); NEUTROPHILS % (AUTO) 82.7 % (40.0-70.0); PLATELET COUNT (AUTO) 131 K/uL (150-450); RED BLOOD CELL COUNT(AUTO) 4.83 MIL/uL (4.50-5.90); RED CELL DISTRIBUTION WIDTH 13.8 % (11.5-14.5)
[2018-08-13 13:31] LABS: ANION GAP 4 mmol/L (8-16); CALCIUM, TOTAL 8.1 mg/dL (8.8-10.5); CARBON DIOXIDE 30 mmol/L (22-29); CHLORIDE 102 mmol/L (98-107); CREATININE 1.05 mg/dL (0.60-1.30); GLOMERULAR FILTR. RATE CALC > 60 mL/min (>60); GLUCOSE,RANDOM 139 mg/dL (70-110); POTASSIUM 3.9 mmol/L (3.5-5.1); SODIUM SERUM 136 mmol/L (136-145); UREA NITROGEN, BLOOD 12 mg/dL (7-18)
[2018-08-13 13:38] LABS: ALANINE AMINOTRANSFERASE 28 U/L (12-78); ALBUMIN 3.6 g/dL (3.4-5.0); ALKALINE PHOSPHATASE 73 U/L (46-116); ASPARTATE AMINOTRANSFERASE 23 U/L (15-37); BILIRUBIN,TOTAL 1.3 mg/dL (0.1-1.0); LIPASE 153 U/L (73-393); TOTAL PROTEIN, SERUM 7.6 g/dL (6.4-8.2)
[2018-08-13 13:42] LABS: B-TYPE NATRIURETIC PEPTIDE < 5 pg/mL (0-100)
[2018-08-13] MEDS ORDERED: ONDANSETRON HCL 4 MG/2 ML VIAL IVP ONE (13:45)
[2018-08-13] MEDS ORDERED: FAMOTIDINE 10 MG/ML 2 ML VIAL IVP ONE (13:45)
[2018-08-13] MEDS ORDERED: SODIUM CHLORIDE 0.9% 1,000 ML IV ONE (13:45)
[2018-08-13] MEDS ORDERED: BARIUM SULFATE 0.1% SUSPENSION 450 ML BOTTLE PO ONE (14:15)
[2018-08-13] MEDS ORDERED: SODIUM CHLORIDE 0.9% 100 ML ONE (14:17)
[2018-08-13] MEDS ORDERED: IOVERSOL 350 MG/ML 100 ML VIAL ONE (14:17)
[2018-08-13] MEDS ORDERED: KETOROLAC TROMETHAMINE 30 MG/ML VIAL IVP ONE (14:30)
[2018-08-13] MEDS ORDERED: LORazepam 2 MG/ML VIAL IVP ONE (14:30)
[2018-08-13] MEDS ORDERED: MAGNESIUM CITRATE 300 ML ORAL SOLUTION PO ONE (17:00)
[2018-08-13 20:03] LABS: AMPHET/METH SCREEN,URINE NEGATIVE (NEGATIVE); BARBITURATE SCREEN, URINE NEGATIVE (NEGATIVE); BENZODIAZEPINES SCREEN,URINE NEGATIVE (NEGATIVE); CANNABINOID SCREEN,URINE NEGATIVE (NEGATIVE); COCAINE SCREEN,URINE NEGATIVE (NEGATIVE); METHADONE SCREEN, URINE NEGATIVE (NEGATIVE); OPIATE SCREEN,URINE NEGATIVE (NEGATIVE)
[2018-08-13 20:06] LABS: PHENCYCLIDINE SCREEN,URINE NEGATIVE (NEGATIVE)
[2018-08-13 21:30] VITALS: BP 105/65
== END 2018-08-13 21:38 | disposition home or self-care (01) ==
LOC: EMS 12:46
DX: K59.00 Constipation, unspecified (principal); R07.89 Other chest pain; F20.9 Schizophrenia, unspecified; F31.9 Bipolar disorder, unspecified; F15.90 Other stimulant use, unspecified, uncomplicated; Z88.5 Allergy status to narcotic agent; Z91.040 Latex allergy status; Z79.899 Other long term (current) drug therapy
CPT/HCPCS: 36415; 71045; 74018; 74177; 80053; 80307; 83690; 83880; 84484; 85025; 93005; 96374; 96375; 99285; G0480; J1885; J2060; J2405; J3490; J7030; J7050; Q9967; Z7610

== ENCOUNTER 2018-12-14 13:25 | Inpatient (IN) | payer MEDICAID ==
[~2018-12-14] VITALS: Ht 180.3 cm; Wt 67.6 kg
[2018-12-14 16:07] LABS: BASOPHILS % (AUTO) 0.4 % (0.0-2.0); HEMATOCRIT 41.6 % (41-53); HEMOGLOBIN 14.3 g/dL (13.5-17.5); LYMPHOCYTES # (AUTO) 1.5 K/uL (1.0-4.8); MEAN CORPUSCULAR HEMOGLOBIN 29.6 pg (26.0-34.0); MEAN CORPUSCULAR HGB CONC 34.4 G/dL (31.0-37.0); MEAN CORPUSCULAR VOLUME 86 fL (80-100); MONOCYTES # (AUTO) 0.5 K/uL (0.1-1.0); MONOCYTES % (AUTO) 10.6 % (2.0-9.0); NEUTROPHILS # (AUTO) 2.4 K/uL (1.8-7.7); PLATELET COUNT (AUTO) 133 K/uL (150-450); RED BLOOD CELL COUNT(AUTO) 4.84 MIL/uL (4.50-5.90); RED CELL DISTRIBUTION WIDTH 14.3 % (11.5-14.5)
[2018-12-14 16:14] LABS: ANION GAP 7 mmol/L (8-16); CALCIUM, TOTAL 8.6 mg/dL (8.8-10.5); CARBON DIOXIDE 30 mmol/L (22-29); CHLORIDE 104 mmol/L (98-107); CREATININE 0.84 mg/dL (0.60-1.30); GLOMERULAR FILTR. RATE CALC > 60 mL/min (>60); GLUCOSE,RANDOM 95 mg/dL (70-110); POTASSIUM 4.2 mmol/L (3.5-5.1); SODIUM SERUM 141 mmol/L (136-145); UREA NITROGEN, BLOOD 15 mg/dL (7-18)
[2018-12-14 16:21] LABS: ALANINE AMINOTRANSFERASE 21 U/L (12-78); ALBUMIN 3.7 g/dL (3.4-5.0); ALKALINE PHOSPHATASE 82 U/L (46-116); ASPARTATE AMINOTRANSFERASE 16 U/L (15-37); BILIRUBIN,TOTAL 0.6 mg/dL (0.1-1.0)
[2018-12-14 16:41] LABS: AMPHET/METH SCREEN,URINE NEGATIVE (NEGATIVE); BARBITURATE SCREEN, URINE NEGATIVE (NEGATIVE); BENZODIAZEPINES SCREEN,URINE NEGATIVE (NEGATIVE); CANNABINOID SCREEN,URINE NEGATIVE (NEGATIVE); COCAINE SCREEN,URINE NEGATIVE (NEGATIVE); METHADONE SCREEN, URINE NEGATIVE (NEGATIVE); OPIATE SCREEN,URINE NEGATIVE (NEGATIVE)
[2018-12-14 16:43] LABS: PHENCYCLIDINE SCREEN,URINE NEGATIVE (NEGATIVE)
[2018-12-14] MEDS ORDERED: MAG HYDROX/AL HYDROX/SIMETH ES 30 ML SUSPENSION UDCUP PO PRN (19:45)
[2018-12-14] MEDS ORDERED: DOCUSATE SODIUM 100 MG CAPSULE PO PRN (19:45)
[2018-12-14] MEDS ORDERED: ALBUTEROL SULFATE HFA 90 MCG/PUFF 8 GM INHALER IH PRN (19:45)
[2018-12-14] MEDS ORDERED: NICOTINE 14 MG/24 HOUR PATCH TD PRN (19:45)
[2018-12-14] MEDS ORDERED: PETROLATUM,WHITE 71 GM JELLY TP PRN (19:45)
[2018-12-14] MEDS ORDERED: CloNIDine HCL 0.1 MG TABLET PO PRN (19:45)
[2018-12-14] MEDS ORDERED: GuaiFENesin/D-METHORPHAN [SUGAR-FREE] 200-20MG/10 ML SYRUP UDCUP PO PRN (19:45)
[2018-12-14] MEDS ORDERED: ONDANSETRON HCL 4 MG TABLET PO PRN (19:45)
[2018-12-14] MEDS ORDERED: LOPERAMIDE HCL 2 MG CAPSULE PO PRN (19:45)
[2018-12-14] MEDS ORDERED: IBUPROFEN 400 MG TABLET PO PRN (19:45)
[2018-12-14] MEDS ORDERED: MAGNESIUM HYDROXIDE SUSPENSION 30 ML UDCUP PO PRN (19:45)
[2018-12-14] MEDS ORDERED: ACETAMINOPHEN 325 MG TABLET PO PRN (19:45)
[2018-12-14 20:12] VITALS: BP 114/66
[2018-12-15] MEDS: ZOLPIDEM TARTRATE 10 MG TABLET PO PRN (03:15)
[2018-12-15] MEDS: LORazepam 2 MG TABLET PO PRN (03:15)
[2018-12-15 03:19] VITALS: BP 112/66
[2018-12-15 06:43] LABS: BASOPHILS % (AUTO) 0.2 % (0.0-2.0); EOSINOPHILS % (AUTO) 2.4 % (1.0-6.0); HEMATOCRIT 42.9 % (41-53); HEMOGLOBIN 14.5 g/dL (13.5-17.5); LYMPHOCYTES # (AUTO) 1.7 K/uL (1.0-4.8); LYMPHOCYTES % (AUTO) 38.7 % (22.0-44.0); MEAN CORPUSCULAR HEMOGLOBIN 29.2 pg (26.0-34.0); MEAN CORPUSCULAR HGB CONC 33.8 G/dL (31.0-37.0); MEAN CORPUSCULAR VOLUME 87 fL (80-100); MONOCYTES # (AUTO) 0.6 K/uL (0.1-1.0); MONOCYTES % (AUTO) 12.3 % (2.0-9.0); NEUTROPHILS # (AUTO) 2.1 K/uL (1.8-7.7); NEUTROPHILS % (AUTO) 46.4 % (40.0-70.0); PLATELET COUNT (AUTO) 129 K/uL (150-450); RED BLOOD CELL COUNT(AUTO) 4.96 MIL/uL (4.50-5.90); RED CELL DISTRIBUTION WIDTH 14.6 % (11.5-14.5)
[2018-12-15 07:15] LABS: ALANINE AMINOTRANSFERASE 20 U/L (12-78); ALBUMIN 3.5 g/dL (3.4-5.0); ALKALINE PHOSPHATASE 63 U/L (46-116); ANION GAP 3 mmol/L (8-16); ASPARTATE AMINOTRANSFERASE 13 U/L (15-37); BILIRUBIN,TOTAL 0.7 mg/dL (0.1-1.0); CALCIUM, TOTAL 8.7 mg/dL (8.8-10.5); CARBON DIOXIDE 31 mmol/L (22-29); CHLORIDE 103 mmol/L (98-107); CHOLESTEROL 122 mg/dL (131-200); CREATININE 0.88 mg/dL (0.60-1.30); GLOMERULAR FILTR. RATE CALC > 60 mL/min (>60); GLUCOSE,RANDOM 79 mg/dL (70-110); HDL CHOLESTEROL 41 mg/dL (40-60); LDL CHOL (CALC.) 69 mg/dL (0-130); POTASSIUM 3.9 mmol/L (3.5-5.1); SODIUM SERUM 137 mmol/L (136-145); THYROID STIMULATING HORMONE 0.75 uIU/mL (0.36-3.74); TOTAL PROTEIN, SERUM 6.7 g/dL (6.4-8.2); TRIGLYCERIDES 62 mg/dL (15-150); UREA NITROGEN, BLOOD 16 mg/dL (7-18)
[2018-12-15 07:58] LABS: HEMOGLOBIN A1C 5.6 % (4.5-6.2)
[2018-12-15 09:48] VITALS: BP 112/68
[2018-12-15] MEDS: SERTRALINE HCL 100 MG TABLET PO SCH (11:59)
[2018-12-15 15:24] LABS: FREE T4 (FREE THYROXINE) 0.81 ng/dL (0.76-1.46)
[2018-12-15 16:30] VITALS: BP 116/72
[2018-12-15] MEDS: QUEtiapine FUMARATE 200 MG TABLET PO SCH (17:19)
[2018-12-16 04:50] VITALS: BP 122/73
[2018-12-16] MEDS: LORazepam 2 MG TABLET PO PRN (05:00)
[2018-12-16 08:00] VITALS: BP 108/67
[2018-12-16] MEDS: SERTRALINE HCL 100 MG TABLET PO SCH (09:00)
[2018-12-16] MEDS: QUEtiapine FUMARATE 200 MG TABLET PO SCH ×2 (09:00→16:15)
[2018-12-17 08:30] VITALS: BP 112/65
[2018-12-17] MEDS: QUEtiapine FUMARATE 200 MG TABLET PO SCH ×2 (08:49→16:42)
[2018-12-17] MEDS: SERTRALINE HCL 100 MG TABLET PO SCH (08:49)
[2018-12-18] MEDS: ZOLPIDEM TARTRATE 10 MG TABLET PO PRN (02:49)
[2018-12-18] MEDS: LORazepam 2 MG TABLET PO PRN (03:12)
[2018-12-18] MEDS: QUEtiapine FUMARATE 100 MG TABLET PO PRN (03:12)
[2018-12-18 08:00] VITALS: BP 129/67
[2018-12-18] MEDS: QUEtiapine FUMARATE 200 MG TABLET PO SCH ×2 (09:18→17:49)
[2018-12-18] MEDS: SERTRALINE HCL 100 MG TABLET PO SCH (09:18)
[2018-12-18 22:14] VITALS: BP 115/62
[2018-12-19] MEDS: ZOLPIDEM TARTRATE 10 MG TABLET PO PRN
[2018-12-19 00:01] VITALS: BP 121/70
[2018-12-19] MEDS: QUEtiapine FUMARATE 100 MG TABLET PO PRN (00:12)
[2018-12-19] MEDS: LORazepam 2 MG TABLET PO PRN (00:37)
[2018-12-19 08:22] VITALS: BP 139/69
[2018-12-19] MEDS: QUEtiapine FUMARATE 200 MG TABLET PO SCH ×2 (08:30→16:17)
[2018-12-19] MEDS: SERTRALINE HCL 100 MG TABLET PO SCH (08:30)
[2018-12-19 19:49] VITALS: BP 115/68
[2018-12-20 03:58] VITALS: BP 105/66
[2018-12-20] MEDS: LORazepam 2 MG TABLET PO PRN (04:00)
[2018-12-20] MEDS: SERTRALINE HCL 100 MG TABLET PO SCH (09:00)
[2018-12-20] MEDS: QUEtiapine FUMARATE 200 MG TABLET PO SCH ×2 (09:00→17:09)
[2018-12-20 09:17] VITALS: BP 122/70
[2018-12-20 18:07] VITALS: BP 102/72
[2018-12-21] MEDS: ZOLPIDEM TARTRATE 10 MG TABLET PO PRN (01:31)
[2018-12-21 03:48] VITALS: BP 107/70
[2018-12-21] MEDS ORDERED: QUET200T PO (08:29)
[2018-12-21] MEDS ORDERED: SERT100T12 PO (08:29)
[2018-12-21] MEDS: QUEtiapine FUMARATE 200 MG TABLET PO SCH ×2 (09:08→16:17)
[2018-12-21] MEDS: SERTRALINE HCL 100 MG TABLET PO SCH (09:08)
[2018-12-21 09:50] VITALS: BP 124/74
[2018-12-21 16:45] VITALS: BP 120/70
[2018-12-22] MEDS: ZOLPIDEM TARTRATE 10 MG TABLET PO PRN (01:24)
[2018-12-22 01:30] VITALS: BP 114/69
[2018-12-22] MEDS: SERTRALINE HCL 100 MG TABLET PO SCH (08:23)
[2018-12-22] MEDS: QUEtiapine FUMARATE 200 MG TABLET PO SCH (08:23)
[2018-12-22 08:30] VITALS: BP 134/82
== END 2018-12-22 10:30 | disposition home or self-care (01) | DRG 750 ==
LOC: EMS 13:29 → 3EI 18:13
DX: F25.1 Schizoaffective disorder, depressive type (principal); R45.851 Suicidal ideations; Z91.5 Personal history of self-harm; E03.9 Hypothyroidism, unspecified; F31.9 Bipolar disorder, unspecified; D64.9 Anemia, unspecified; F41.9 Anxiety disorder, unspecified; I10 Essential (primary) hypertension; Z88.8 Allergy status to other drugs, medicaments and biological substances; Z91.040 Latex allergy status
CPT/HCPCS: 83036; 84439; 84443; G0480

== ENCOUNTER 2019-04-05 20:27 | Emergency (ER) | payer MEDICAID ==
[~2019-04-05] VITALS: Ht 165.1 cm; Wt 72.0 kg
[~2019-04-05 20:27] MED LIST changes: +QUET200T PO; -QUET200T29 PO
[2019-04-05] MEDS ORDERED: LORazepam 1 MG TABLET PO ONE (21:15)
[2019-04-05] MEDS ORDERED: KETOROLAC TROMETHAMINE 60 MG/2 ML VIAL IM ONE (21:15)
[2019-04-05 21:50] LABS: BASOPHILS % (AUTO) 0.5 % (0.0-2.0); EOSINOPHILS % (AUTO) 0.2 % (1.0-6.0); HEMATOCRIT 43.2 % (41-53); HEMOGLOBIN 14.6 g/dL (13.5-17.5); LYMPHOCYTES # (AUTO) 1.6 K/uL (1.0-4.8); LYMPHOCYTES % (AUTO) 19.1 % (22.0-44.0); MEAN CORPUSCULAR HEMOGLOBIN 29.3 pg (26.0-34.0); MEAN CORPUSCULAR HGB CONC 33.9 G/dL (31.0-37.0); MEAN CORPUSCULAR VOLUME 87 fL (80-100); MONOCYTES # (AUTO) 1.1 K/uL (0.1-1.0); MONOCYTES % (AUTO) 12.5 % (2.0-9.0); NEUTROPHILS # (AUTO) 5.7 K/uL (1.8-7.7); NEUTROPHILS % (AUTO) 67.7 % (40.0-70.0); PLATELET COUNT (AUTO) 153 K/uL (150-450); RED BLOOD CELL COUNT(AUTO) 4.99 MIL/uL (4.50-5.90); RED CELL DISTRIBUTION WIDTH 14.7 % (11.5-14.5)
[2019-04-05 22:05] LABS: ALANINE AMINOTRANSFERASE 23 U/L (12-78); ALBUMIN 4.2 g/dL (3.4-5.0); ALKALINE PHOSPHATASE 67 U/L (46-116); ANION GAP 14 mmol/L (8-16); ASPARTATE AMINOTRANSFERASE 21 U/L (15-37); BILIRUBIN,TOTAL 3.2 mg/dL (0.1-1.0); CALCIUM, TOTAL 9.2 mg/dL (8.8-10.5); CARBON DIOXIDE 27 mmol/L (22-29); CHLORIDE 102 mmol/L (98-107); CREATININE 0.94 mg/dL (0.60-1.30); GLOMERULAR FILTR. RATE CALC > 60 mL/min (>60); GLUCOSE,RANDOM 105 mg/dL (70-110); POTASSIUM 3.5 mmol/L (3.5-5.1); SODIUM SERUM 143 mmol/L (136-145); TOTAL PROTEIN, SERUM 7.9 g/dL (6.4-8.2); UREA NITROGEN, BLOOD 12 mg/dL (7-18)
[2019-04-05 23:01] LABS: AMPHET/METH SCREEN,URINE POSITIVE (NEGATIVE); BARBITURATE SCREEN, URINE NEGATIVE (NEGATIVE); BENZODIAZEPINES SCREEN,URINE NEGATIVE (NEGATIVE); CANNABINOID SCREEN,URINE NEGATIVE (NEGATIVE); COCAINE SCREEN,URINE NEGATIVE (NEGATIVE); METHADONE SCREEN, URINE NEGATIVE (NEGATIVE); OPIATE SCREEN,URINE NEGATIVE (NEGATIVE)
[2019-04-05 23:02] LABS: PHENCYCLIDINE SCREEN,URINE NEGATIVE (NEGATIVE)
[2019-04-05 23:14] VITALS: BP 110/70
== END 2019-04-05 23:20 | disposition home or self-care (01) ==
LOC: EMS 20:30
DX: S52.122A Displaced fracture of head of left radius, initial encounter for closed fracture (principal); S50.812A Abrasion of left forearm, initial encounter; S50.811A Abrasion of right forearm, initial encounter; S10.91XA Abrasion of unspecified part of neck, initial encounter; S00.81XA Abrasion of other part of head, initial encounter; F31.9 Bipolar disorder, unspecified; F41.9 Anxiety disorder, unspecified; F20.9 Schizophrenia, unspecified; F19.90 Other psychoactive substance use, unspecified, uncomplicated; Z88.5 Allergy status to narcotic agent; Z91.040 Latex allergy status; Z79.899 Other long term (current) drug therapy; V19.88XA Pedal cyclist (driver) (passenger) injured in other specified transport accidents, initial encounter; Y93.89 Activity, other specified; Y92.89 Other specified places as the place of occurrence of the external cause; Y99.8 Other external cause status
CPT/HCPCS: 29105; 36415; 73080; 80053; 80307; 85025; 96372; 99284; J1885